=== PATIENT | male | born 1955 | race Caucasian/White ===

== ENCOUNTER → 2018-06-15 | Outpatient (CLI) | payer OTHER | LOC: GMAE 11:47 | PROVIDERS: ATTEND Family Medicine | DX: Z00.00 Encounter for general adult medical examination without abnormal findings (principal) ==

== ENCOUNTER → 2020-09-25 | Outpatient (CLI) | payer OTHER, MEDICARE ==
--- NOTE | 2020-09-25 11:56 | US ---
EXAM DESCRIPTION: Venous,Lower Extremity RT: ULTRASOUND. CLINICAL HISTORY: LEG PN RIGHT. COMPARISON: None Available. TECHNIQUE: Ogden-scale and doppler sonographic evaluation of the deep venous system of the right lower extremity. FINDINGS: Doppler evaluation shows reduced color and venous waveform in the right greater saphenous vein, junction with the CFV. This continues in the thigh and in the vein below the right knee. Grayscale evaluation shows echogenic material in the lumen of the vein with little or no compressibility by the transducer. Doppler evaluation shows normal color flow and normal phasicity and augmentation of the right common femoral vein, right femoral vein, popliteal vein, Also normal color flow and normal phasicity and augmentation of the right peroneal, and posterior tibial vein. The right lower extremity deep veins were completely compressible; normal occlusion with transducer pressure. Ogden-scale survey showed no echogenic thrombus within these veins. IMPRESSION: 1. Duplex ultrasound evaluation of the right lower extremity deep venous system showing no evidence of thrombosis. 2. Thrombosis in the junction of the right common femoral vein and right greater saphenous vein and continuing inferiorly in the right greater saphenous vein. CRITICAL COMMUNICATION: The critical value was communicated directly by Dr. Putnam via phone call, with Dr. Gatito Hansen, at approximately 1135 hours, on September 25, 2020. Electronically signed by: Eloy Putnam MD 09/25/2020 11:54 AM [employer]NAGER [employer]
== END ==
LOC: GMALS 09:54
PROVIDERS: ATTEND Nurse Practitioner Acute Care
DX: I82.411 Acute embolism and thrombosis of right femoral vein (principal); I82.811 Embolism and thrombosis of superficial veins of right lower extremity